=== PATIENT | male | born 1970 | race Two or more races ===

== ENCOUNTER 2016-03-07 07:12 | Emergency (ER) | payer BC ==
[2016-03-07 07:28] VITALS: BP 165/106
--- NOTE | 2016-03-07 07:44 | UC ---
Upper Extremity HPI - HPI Summary HPI Summary: FELL ON ICE 6:15 AM THIS MORNING WHILE GETTING OUT OF TRUCK. LANDED ON LEFT SIDE AND NOW HAS LEFT SHOULDER PAIN. NUMBNESS IN FOREARM AND HAND. - History of Current Complaint Chief Complaint: UCUpperExtremity Stated Complaint: ELBOW ARM Time Seen by Provider: 03/07/16 07:37 Hx Obtained From: Patient Onset/Duration: Sudden Onset, Lasting Hours, Still Present Severity Initially: Moderate Severity Currently: Moderate Pain Intensity: 8 Pain Scale Used: 0-10 Numeric Location Of Pain: Is Discrete @ - LEFT ARM Character: Sharp, Aching Aggravating Factor(s): Movement Alleviating Factor(s): Rest Associated Signs And Symptoms: Positive: Numbness/Tingling Related History: Dominant Hand Left - Allergies/Home Medications Allergies/Adverse Reactions: Allergies Allergy/AdvReac Type Severity Reaction Status Date / Time No Known Allergies Allergy Verified 11/20/15 11:01 Home Medications: Home Medications Atorvastatin* [Lipitor 10 MG*] 10 mg PO DAILY 03/07/16 [History Confirmed ] Nebivolol HCl [Bystolic] 5 mg PO DAILY 03/07/16 [History Confirmed 03/07/16] PMH/Surg Hx/FS Hx/Imm Hx Endocrine History Of: Denies: Diabetes, Thyroid Disease Cardiovascular History Of: Reports: Hypertension Denies: Cardiac Disorders, Pacemaker/ICD Respiratory History Of: Denies: COPD, Asthma GI/ History Of: Denies: Ulcer, Renal Disease Other History Of: Negative For: Anticoagulant Therapy - Surgical History Surgical History: Yes Surgery Procedure, Year, and Place: right knee arthoscopy 2000. left elbow surgery - Family History Known Family History: Positive: Hypertension - Social History Alcohol Use: Daily Alcohol Amount: 2 drinks today Substance Use Type: None Smoking Status (MU): Current Every Day Smoker Type: Smokeless Tobacco Review of Systems Constitutional: Negative Skin: Negative Respiratory: Negative Cardiovascular: Negative Gastrointestinal: Negative Musculoskeletal: Arthralgia, Decreased ROM, Myalgia All Other Systems Reviewed And Are Negative: Yes Physical Exam Triage Information Reviewed: Yes Appearance: Well-Appearing, Well-Nourished, Pain Distress - MODERATE Vital Signs: Initial Vital Signs Temp 98.9 F 03/07/16 07:23 Pulse 96 03/07/16 07:23 Resp 18 03/07/16 07:23 BP 165/106 03/07/16 07:23 Pulse Ox 95 03/07/16 07:23 Vital Signs Reviewed: Yes Eyes: Positive: Conjunctiva Clear ENT: Positive: Hearing grossly normal Neck: Positive: Supple Respiratory: Positive: No respiratory distress, No accessory muscle use Cardiovascular: Positive: Pulses Normal Abdomen Description: Positive: Soft Musculoskeletal: Positive: No Edema, ROM Limited @ - LEFT SHOULDER, Other: - TTP DIFFUSELY OVER LEFT SHOULDER Neurological: Positive: Alert Psychological: Positive: Age Appropriate Behavior Skin: Negative: rashes Diagnostics - Radiology LEFT SHOULDER XRAY Xray Interpretation: No Acute Changes Radiology Interpretation Completed By: Radiologist Upper Extremity Course/Dx - Differential Dx/Diagnosis Provider Diagnoses: LEFT SHOULDER SPRAIN Discharge - Discharge Plan Condition: Stable Disposition: HOME Patient Education Materials: Shoulder Sprain (ED) Forms: *Work Release Referrals: Duglas Linares MD [Medical Doctor] - If Needed Wilfrido Sheth MD [Primary Care Provider] - If Needed Additional Instructions: XRAY TODAY NEGATIVE FOR FRACTURE OR DISLOCATION. WEAR SLING FOR COMFORT. FOLLOW- UP ORTHO IF NEEDED (DR. LINARES OFFICE).
--- NOTE | 2016-03-07 08:11 | RAD ---
Indication: LEFT shoulder pain post fall this morning. Limited range of motion. Comparison: None. Technique: Internal and external rotation AP and scapular Y views LEFT shoulder Report: Normal acromioclavicular and glenohumeral joint alignment. Negative for fracture. Moderate acromioclavicular joint osteophytosis and capsular hypertrophy. Mild glenohumeral joint osteophytosis. Unremarkable soft tissue contours. IMPRESSION: Negative for fracture or traumatic malalignment. Osteoarthritis.
== END 2016-03-07 08:29 | disposition home or self-care (01) ==
LOC: UCEAST 07:12
DX: S43.402A Unspecified sprain of left shoulder joint, initial encounter (principal); W17.89XA Other fall from one level to another, initial encounter; Y93.9 Activity, unspecified; Y92.9 Unspecified place or not applicable; I10 Essential (primary) hypertension; F17.210 Nicotine dependence, cigarettes, uncomplicated
CPT/HCPCS: 99212; G0463

== ENCOUNTER 2023-11-12 11:39 | Observation (INO) ==
[~2023-11-12 11:39] MED LIST: Dexamethasone IV 4 MG/ML VIAL 1 ml VIAL ONE; Lidocaine 2% PF 5 ML VIAL ONE; Naloxone 0.4 mg VIAL 0.4 mg/ml 1 ml VIAL IV PRN; Ondansetron 4 mg VIAL 2 MG/ML 2 ml VIAL IV PRN; Ondansetron 4 mg VIAL 2 MG/ML 2 ml VIAL ONE
[2023-11-12] MEDS: Buffered Lidocaine 1% SYRIN 1 ml INTRADERM ONE (12:23)
[2023-11-12] MEDS ORDERED: Tranexamic Acid 1 GM/100ML BAG 2,000 MG/200 ML BAG IV ONE (12:29)
[2023-11-12] MEDS ORDERED: ceFAZolin 2 GM PREMIX 2 GM/50 ML BAG ONE (12:29)
[2023-11-12] MEDS ORDERED: Famotidine IV 10 MG/ML 2 ml VIAL (20 mg) ONE (12:29)
[2023-11-12] MEDS: Famotidine IV 10 MG/ML 2 ml VIAL (20 mg) IV ONE (12:42)
[2023-11-12] MEDS: Lactated Ringers 1000 ml BAG 1,000 ML IV SCH ×2 (12:42→21:45)
[2023-11-12 12:45] LABS: Rapid COVID-19 Molecular Undetected (Undetected)
[2023-11-12] MEDS ORDERED: Propofol 10 MG/ML 20 ML BTL ONE (13:12)
[2023-11-12] MEDS ORDERED: fentaNYL 250 mcg/5 ml 50 MCG/ML 5 ml VIAL (250 MCG) ONE ×2 (13:13→14:31)
[2023-11-12] MEDS ORDERED: Midazolam 2 mg/2 ml VIAL 1 mg/ml 2 ml VIAL (2 mg) ONE (13:13)
[2023-11-12] MEDS ORDERED: ROPIVACAINE 5 MG/ML 30 ML BTL (0.5%) ONE (13:31)
[2023-11-12] MEDS ORDERED: Rocuronium 50 mg VIAL 10 mg/ml 5 ml VIAL (50 mg) ONE ×2 (13:41→15:27)
[2023-11-12] MEDS ORDERED: HYDROmorphone 0.5 MG/0.5 ML SYRINGE ONE (14:58)
[2023-11-12] MEDS ORDERED: Ondansetron 4 mg VIAL 2 MG/ML 2 ml VIAL IV PRN (15:15)
[2023-11-12] MEDS ORDERED: Morphine 2 MG/ML SYRINGE IV PRN (15:15)
[2023-11-12] MEDS ORDERED: Lactulose 30 ml UDC PO PRN (15:15)
[2023-11-12] MEDS ORDERED: Calcium Carb (TUMS) 500 mg CHEW TAB PO PRN (15:15)
[2023-11-12] MEDS ORDERED: Magnesium Hydroxide LIQ 30 ML UDC PO PRN (15:15)
[2023-11-12] MEDS ORDERED: Ondansetron ODT 4 mg TAB 4 MG TAB PO PRN (15:15)
[2023-11-12] MEDS ORDERED: fentaNYL 100 mcg/2 ml 50 MCG/ML VIAL ONE (17:49)
[2023-11-12] MEDS: fentaNYL 100 mcg/2 ml 50 MCG/ML VIAL IV PRN (18:00)
[2023-11-12] MEDS ORDERED: Acetaminophen IV 1 GM/100ML 1,000 MG/100 ML BAG IV ONE (18:36)
[2023-11-12] MEDS: Acetaminophen IV 1 GM/100ML 1,000 MG/100 ML BAG IV ONE (18:50)
[2023-11-12] MEDS ORDERED: HYDROmorphone 1 MG/1 ML SYRINGE ONE (18:56)
[2023-11-12] MEDS: HYDROmorphone 0.5 MG/0.5 ML SYRINGE IV SLOW PU ONE (19:00)
[2023-11-12] MEDS: Magnesium Hydroxide LIQ 30 ML UDC PO SCH (21:11)
[2023-11-12] MEDS: ceFAZolin 2 GM PREMIX 2 GM/50 ML BAG IV SCH (23:12)
[2023-11-13 05:53] VITALS: BP 147/83
[2023-11-13 06:17] LABS: Hematocrit 40.4 % (38-53); Hemoglobin 13.8 g/dL (13.2-16.3); Mean Platelet Volume 9.1 fL (7.5-11.2); Platelet Count 199 10^3/uL (150-450)
[2023-11-13 06:53] LABS: Calcium 8.4 mg/dL (8.6-10.3); Creatinine, Serum 0.88 mg/dL (0.67-1.17); Potassium 3.9 mmol/L (3.5-5.0); eGFR CKD-EPI 103.5 (>60)
[2023-11-13] MEDS: Vitamin THERAPEUTIC TAB PO SCH (07:52)
== END 2023-11-13 12:20 | disposition home or self-care (01) ==
LOC: OR 11:39 → SSU 11:39
PROVIDERS: ADMIT Orthopaedic Surgery Adult Reconstructive Orthopaedic Surgery; ATTEND Orthopaedic Surgery Adult Reconstructive Orthopaedic Surgery